=== PATIENT | female | born 1960 | race Caucasian/White ===

== ENCOUNTER 2021-02-12 20:09 | Emergency (ER) | payer BC ==
[2021-02-12 20:38] LABS: EOS # 0.2 (0.04-0.40); EOS % 1.7 % (1.0-5.0); HEMATOCRIT 43.2 % (37.0-47.0); HEMOGLOBIN 14.2 g/dL (12.5-16.0); LYMPH# 2.6 (1.50-4.00); MEAN CELL VOLUME 86 fl (78-100); MEAN CORPUSCULAR HEMOGLOBIN 28 pg (27-31); MEAN CORPUSCULAR HGB CONC 33 g/dL (33-37); MEAN PLATELET VOLUME 10.3 fl (7.4-10.4); MONO # 0.9 (0.20-0.80); NEU # 4.9 (1.40-6.50); PLATELET COUNT 192 K/mm3 (130-400); RED CELL DISTRIBUTION WIDTH 13.6 % (11.5-14.5); WHITE BLOOD COUNT 8.7 K/mm3 (4.8-10.8)
[2021-02-12 20:49] LABS: ALBUMIN 4.7 g/dL (3.4-4.8); POTASSIUM 3.8 mmol/L (3.5-5.1); SODIUM 139 mmol/L (136-145)
[2021-02-12 20:50] LABS: CALCIUM 10.2 mg/dL (8.3-10.5)
[2021-02-12] MEDS ORDERED: ESCITALOPRAM10 MG PO (20:50)
[2021-02-12] MEDS ORDERED: METFORMIN HYD1000 MG PO (20:50)
[2021-02-12] MEDS ORDERED: ATORVASTATIN CA40 MG PO (20:50)
[2021-02-12] MEDS ORDERED: POTASSIUM CH2 MEQ/ML PO (20:50)
[2021-02-12] MEDS ORDERED: LOSARTAN POTASS1 TA2 PO (20:50)
[2021-02-12] MEDS ORDERED: MELOXICAM15 MG PO (20:50)
[2021-02-12 20:53] LABS: CARBON DIOXIDE 24 mmol/L (23-31); TOTAL BILIRUBIN 0.6 mg/dL (0.2-1.2)
[2021-02-12 20:57] LABS: AST-SGOT 32 U/L (5-34)
[2021-02-12 20:58] LABS: ALT/SGPT 40 U/L (0-55)
[2021-02-12 21:06] LABS: TROPONIN-I < 0.03 ng/mL (<0.030)
[2021-02-12 21:26] LABS: GLUCOSE 137 mg/dL (65-105)
[2021-02-12 22:40] VITALS: BP 140/77
== END 2021-02-12 22:40 | disposition home or self-care (01) ==
LOC: ED 20:09
PROVIDERS: Nurse Practitioner Family
DX: R07.89 Other chest pain (principal); I10 Essential (primary) hypertension; E11.9 Type 2 diabetes mellitus without complications; E78.5 Hyperlipidemia, unspecified; Z82.49 Family history of ischemic heart disease and other diseases of the circulatory system; Z79.84 Long term (current) use of oral hypoglycemic drugs
CPT/HCPCS: J7030